=== PATIENT | female | born 1965 | race Caucasian/White ===

== ENCOUNTER → 2021-12-20 | Outpatient (CLI) | payer BC ==
--- NOTE | 2021-12-20 09:34 | RAD ---
EXAM: Pelvis and bilateral hips, 3 views. HISTORY: Pain. COMPARISON: None. FINDINGS: A frontal view of the pelvis and frontal and frog-leg views of the left hip are obtained. T here is no acute fracture, dislocation or subluxation. There is left hip joint space narrowing with d egenerative subchondral sclerosis and marginal acetabular and femoral head spurring. There is cortica l irregularity along the superior articular aspect of the femoral head suggesting a component of zaki ical collapse. There is degenerative change at the lumbosacral junction. There are fallopian tube lizzie sure devices overlying the pelvis. IMPRESSION: 1. Moderate left hip osteoarthritis with associated bony remodeling and suspected slight cortical col lapse involving the superior articular aspect of the femoral head. 2. No acute osseous finding. Electronically signed by: Jaquelin Ruiz MD (12/20/2021 9:31 AM) [id number]
== END ==
LOC: RAD 08:59
PROVIDERS: ATTEND Orthopaedic Surgery
DX: M16.12 Unilateral primary osteoarthritis, left hip (principal); M47.815 Spondylosis without myelopathy or radiculopathy, thoracolumbar region; M76.892 Other specified enthesopathies of left lower limb, excluding foot
CPT/HCPCS: 73502